=== PATIENT | female | born 1950 | race Caucasian/White ===

== ENCOUNTER 2019-02-03 10:18 | Emergency (ER) | payer OTHER ==
[2019-02-03] MEDS: METHYLPREDNISOLONE 125 MG INJ IV (12:32)
[2019-02-03] MEDS: KETOROLAC 15 MG INJ IM (12:32)
[2019-02-03] MEDS: HYDROCODONE/APAP (5/325) TAB PO (12:53)
== END 2019-02-03 13:39 | disposition home or self-care (01) ==
LOC: E/R 10:18
DX: M79.604 Pain in right leg (principal); I10 Essential (primary) hypertension; E11.9 Type 2 diabetes mellitus without complications; M54.31 Sciatica, right side
CPT/HCPCS: 96372; 96374; 99284-25